=== PATIENT | male | born 1975 | race Two or more races ===

== ENCOUNTER 2021-09-19 07:30 | Emergency (ER) | payer SELFPAY ==
[~2021-09-19] VITALS: Ht 167.6 cm; Wt 72.6 kg
[2021-09-19 07:36] VITALS: BP 148/112
--- NOTE | 2021-09-19 09:10 | NUR ---
PT SEEN AND DC BY DR SONG, NO NURSING INTERVENTIONS PROVIDED
--- NOTE | 2021-09-19 09:11 | NUR ---
PATIENT BIB JUD [employer]. PATIENT EXAMINED BY DR. SONG. PATIENT MEDICALLY CLEARED AND RELEASED IN CUSTODY IN STABLE CONDITION. ORIGINAL PRE-BOOK FORM GIVEN TO OFFICER MADHU.
== END 2021-09-19 09:10 ==
LOC: MED 07:30
DX: S80.01XA Contusion of right knee, initial encounter (principal); S00.81XA Abrasion of other part of head, initial encounter; S09.90XA Unspecified injury of head, initial encounter; M25.551 Pain in right hip; Z02.89 Encounter for other administrative examinations; Z98.890 Other specified postprocedural states; W22.8XXA Striking against or struck by other objects, initial encounter; Y93.89 Activity, other specified; Y92.89 Other specified places as the place of occurrence of the external cause; Y99.8 Other external cause status
CPT/HCPCS: 73502; 73562; 99285